=== PATIENT | female | born 1995 | race American Indian/Alaskan Native ===

== ENCOUNTER 2022-03-10 19:55 | Emergency (ER) | payer SELFPAY ==
[2022-03-10] MEDS ORDERED: IBUPROFEN 600 MG TAB PO ONE (20:03)
[2022-03-10 20:07] VITALS: BP 146/80
== END 2022-03-11 03:30 | disposition left against medical advice (07) ==
LOC: ED 19:55
DX: M79.18 Myalgia, other site (principal); Z53.21 Procedure and treatment not carried out due to patient leaving prior to being seen by health care provider